=== PATIENT | male | born 1955 | race Caucasian/White ===

== ENCOUNTER 2024-03-21 19:55 | Emergency (ER) | payer SELFPAY ==
[~2024-03-21] VITALS: Ht 172.7 cm; Wt 91.0 kg
[2024-03-21 20:10] VITALS: TEMP 98.7; O2SAT 100
[2024-03-21 21:03] LABS: CARBON DIOXIDE 17 mEq/L (21-32); CHLORIDE 105 mEq/L (98-107); POTASSIUM 4.2 mEq/L (3.5-5.1); SODIUM 137 mEq/L (136-145)
[2024-03-21 21:04] LABS: CALCIUM 9.6 mg/dL (8.7-10.4)
[2024-03-21 21:06] LABS: BASOPHILS % 1.1 % (0.0-2.0); EOSINOPHILS % 1.2 % (0.0-5.0); HEMATOCRIT. 40.8 % (42.0-52.0); HEMOGLOBIN. 13.2 g/dL (14.0-18.0); LYMPHOCYTES % 26.1 % (20.0-50.0); MEAN CORPUSCULAR HEMOGLOBIN 32.5 pg (28.0-32.0); MEAN CORPUSCULAR HGB CONC 32.5 g/dL (31.0-37.0); MONOCYTES % 4.5 % (2.0-8.0); NEUTROPHILS % 67.1 % (40.0-76.0); RED BLOOD CELL COUNT 4.07 mill/uL (4.7-6.1); RED CELL DISTRIBUTION WIDTH 14.9 % (11.6-14.6)
[2024-03-21 21:09] LABS: AMMONIA < 17 uMol/L (<32); CREATININE 1.2 mg/dL (0.6-1.3); ETHANOL BLOOD 139 mg/dL (<10); GLUCOSE 217 mg/dL (70-105); TROPONIN I HIGH SENSITIVITY 5 ng/L (3.0-53); UREA NITROGEN BLOOD 23 mg/dL (9-23)
[2024-03-21 21:11] LABS: ACETAMINOPHEN 5 ug/mL (10-30)
[2024-03-21 21:12] LABS: DIFFERENTIAL COMMENT 1
[2024-03-21 21:15] LABS: LACTIC ACID 7.3 mmol/L (0.4-2.0)
[2024-03-21 21:25] LABS: MEAN PLATELET VOLUME 10.6 fl (7.4-10.4); PLATELET 153 x1000/uL (130-400)
[2024-03-21] MEDS ORDERED: NALO4SPR BOTHNSTRLS (22:03)
[2024-03-21] MEDS: SODIUM CHLORIDE 0.9% 1,000 ML IV ONE (22:42)
[2024-03-21 23:30] VITALS: BP 106/60; PULSE 86; RESP 18
== END 2024-03-21 23:35 | disposition home or self-care (01) ==
LOC: ER 20:26
DX: T40.2X1A Poisoning by other opioids, accidental (unintentional), initial encounter (principal); F10.129 Alcohol abuse with intoxication, unspecified; E87.20 Acidosis, unspecified; I10 Essential (primary) hypertension; E11.9 Type 2 diabetes mellitus without complications; Y92.89 Other specified places as the place of occurrence of the external cause; Y90.6 Blood alcohol level of 120-199 mg/100 ml
CPT/HCPCS: 80048; 80307; 80329; 80320; 82140; 83880; 83605; 85025; 84484; 36415; 71045; 70450; 93005; 96360; 99285; J7030; G0480